=== PATIENT | male | born 2000 | race Hispanic/Latino ===

== ENCOUNTER 2021-01-17 13:53 | Emergency (ER) | payer OTHER, BC ==
[2021-01-17] MEDS ORDERED: Boostrix 0.5 ML (Tdap) VIAL ONE (14:16)
[2021-01-17] MEDS ORDERED: CEFAZOLIN 1 GM VIAL ONE (14:32)
[2021-01-17] MEDS ORDERED: Fentanyl 100 MCG/2 ML VIAL ONE (15:17)
[2021-01-17] MEDS ORDERED: Lidocaine 1% w/Epinephrine 1:100K 20 ML VIAL ONE ×2 (15:57→16:21)
[2021-01-17 19:00] LABS: HBSAg Index 0.21 S/CO (0-0.99); HIV (1/2) Antibody/Antigen Non-Reactive (NonReactive); HIV 1/2 INDEX 0.12 S/CO (<1.00); Hep B Surf Ag Non-Reactive S/CO (NonReactive); Hep C IgG Ab Non-Reactive (NonReactive)
== END 2021-01-17 18:15 | disposition home or self-care (01) ==
LOC: ERS 13:53
DX: S41.012A Laceration without foreign body of left shoulder, initial encounter (principal); W45.8XXA Other foreign body or object entering through skin, initial encounter
CPT/HCPCS: 12034; 36415; 86803; 87340; 87389; 90471; 90715; 96365; 96375; G0390; J0690; J3010